=== PATIENT | female | born 1950 | race Asian ===

== ENCOUNTER 2016-07-20 09:13 | Day surgery (SDC) | payer MEDICARE, BC ==
--- NOTE | 2016-07-19 18:45 | Pre-op HX & Phy Repo 2 SIG ---
DATE OF ADMISSION: 07/20/2016 DATE OF SURGERY: 07/20/2016 PREOPERATIVE DIAGNOSIS: Retinal detachment right eye. BRIEF NOTE: This is a first [facility] admission for this patient, who is a very pleasant, 66-year-old lady who complained of a block vision or shadow in the vision of the right eye for the past day. On examination, she was found to have a localized retinal detachment and is admitted for repair. PAST MEDICAL HISTORY: Remarkable for diabetes and sleep apnea. She has had prior shingles. She is maintained on Flonase, Livalo, aspirin, metformin, and valsartan. ALLERGIES: She has an allergy to sulfa, Bactrim, Naprosyn, and Toprol. Physical Examination: Best vision at the time of admission was 30 in the right eye and 20/40 in the left with pressures of 17 and 16. There was an inferolateral nasal field defect on the right eye. The left eye was full. Fundus examination of the right eye showed a localized retinal detachment from the 9 o'clock to 12:30 position what appeared to be a single horseshoe tear at the 10 o'clock position. The macula was still . No other breaks were seen. The left fundus showed no tears to scleral depression. General physical examination will be done by Dr. Waters. ASSESSMENT: Localized retinal detachment right eye. PLAN: The plan is to perform a pars plana vitrectomy with endo drainage cryopexy and injection of the gas fluid exchange on the right eye. The risks and benefits of surgery were gone over the patient with potential for infection, hemorrhage, cataract formation, the need for additional operations, remote possibility of loss of the eye. The risk of anesthesia was discussed. The patient understands consents to the surgery to be performed on tomorrow morning. Dave Self M.D. DR: Miki JOB#: [id number] CC:
[2016-07-20] VITALS (10 sets, daily range): BP systolic 106–134; BP diastolic 67–91
[~2016-07-20] VITALS: Ht 160 cm; Wt 83.9 kg
[~2016-07-20 09:13] MED LIST: Pred Forte 1% Opth Susp 1ml RIGHT EYE SCH
[2016-07-20] MEDS ORDERED: Phenylephrine 2.5% Op Soln ONE (10:10)
[2016-07-20] MEDS ORDERED: Cyclopentolate 1% Opth Sol ONE (10:10)
[2016-07-20] MEDS: Cyclopentolate 1% Opth Sol RIGHT EYE SCH ×3 (10:12→10:29)
[2016-07-20] MEDS: Phenylephrine 2.5% Op Soln RIGHT EYE SCH ×3 (10:12→10:29)
[2016-07-20] MEDS: Gatifloxacin Opth Solution 0.5% RIGHT EYE SCH ×3 (10:12→10:29)
[2016-07-20 10:14] LABS: BASOPHILS % (AUTO) 1.3 % (0.0-2.0); EOSINOPHILS % (AUTO) 8.8 % (0.0-3.0); LYMPHOCYTES % (AUTO) 32.1 % (20.0-45.0); MEAN CORPUSCULAR HEMOGLOBIN 27.5 PG (27.0-31.0); MEAN CORPUSCULAR HGB CONC 32.9 G/DL (32.0-36.0); MEAN CORPUSCULAR VOLUME 83 FL (80-99); MEAN PLATELET VOLUME 6.5 FL (6.5-10.1); MONOCYTES % (AUTO) 6.6 % (1.0-10.0); NEUTROPHILS % (AUTO) 51.3 % (45.0-75.0); PLATELET COUNT 298 K/UL (150-450); RED BLOOD COUNT 4.87 M/UL (4.20-5.40); RED CELL DISTRIBUTION WIDTH 12.3 % (11.6-14.8); WHITE BLOOD COUNT 5.4 K/UL (4.8-10.8)
[2016-07-20 10:24] LABS: CALCIUM 9.6 mg/dL (8.6-10.2); GLOMERULAR FILTRATION RATE 55.3 mL/min (>60); POTASSIUM 3.8 mEQ/L (3.4-4.9)
[2016-07-20] MEDS ORDERED: Maxitrol Opth Oint 3.5gm ONE (10:52)
[2016-07-20] MEDS ORDERED: BSS 500ml btl ONE (10:52)
[2016-07-20] MEDS ORDERED: Lidocaine 2% MPF 5ml Vial INJ ONE (10:53)
[2016-07-20] MEDS ORDERED: Bupivacaine 0.75% 30ml vial INJ ONE (10:53)
[2016-07-20] MEDS ORDERED: Dexamethasone 4mg/ml vial ONE (10:53)
[2016-07-20] MEDS ORDERED: Tetracaine 0.5% Opth Soln ONE (10:53)
[2016-07-20] MEDS ORDERED: Sodium Hyaluronate 10 mg/ml 0.85ml ONE (10:53)
[2016-07-20] MEDS ORDERED: EPINEPHrine 1mg/1ml Amp ONE (10:53)
[2016-07-20] MEDS ORDERED: BSS 15ml BTL ONE (10:53)
[2016-07-20] MEDS ORDERED: Povidone-Iodine 5% opth solution ONE (10:55)
[2016-07-20] MEDS ORDERED: Neosporin Oph Soln 5ml Btl ONE (10:55)
[2016-07-20] MEDS ORDERED: Sterile Water Irrig 1000ml IRRIG ONE (11:15)
[2016-07-20] MEDS ORDERED: LR 1000ml ONE (11:15)
[2016-07-20] MEDS ORDERED: Propofol 10mg/ml 20ml IV ONE ×2 (11:15→11:19)
[2016-07-20] MEDS ORDERED: NS Irrig 1000ml ONE (11:15)
[2016-07-20] MEDS ORDERED: Midazolam 2mg/2ml Inj ONE (11:15)
[2016-07-20] MEDS ORDERED: Kenalog-40 1ml Vial ONE (11:18)
[2016-07-20] MEDS ORDERED: Kenalog-10 5ml Inj ONE (11:18)
[2016-07-20] MEDS ORDERED: LR 1000ml 1,000 ML IVLG SCH (11:31)
[2016-07-20] MEDS ORDERED: LR 1000ml 1,000 ML IV SCH (11:45)
[2016-07-20] MEDS ORDERED: fentaNYL 100 mcg/2 mL IV PRN (11:45)
--- NOTE | 2016-07-20 11:54 | Anethesia Preoperative Eval ---
Anesthesia Pre-op PMH/ROS General Date of Evaluation: Jul 20, 2016 Time of Evaluation: 11:15 Anesthesiologist: Ruddy ASA Score: ASA 3 Mallampati Score Class I : Soft palate, uvula, fauces, pillars visible Class II: Soft palate, uvula, fauces visible Class III: Soft palate, base of uvula visible Class IV: Only hard plate visible Mallampati Classification: Class II Surgeon: Clair Diagnosis: Detached retina right eye Surgical Procedure: Vitrectomy, cryo, gas fluid exchange right eye Family History: no anesthesia problems Allergies: Coded Allergies: NAPROXEN (Verified Allergy, Unknown, 07/20/16) SULFAMETHOXAZOLE (Verified Allergy, Unknown, 07/20/16) TRIMETHOPRIM (Verified Allergy, Unknown, 07/20/16) Medications: see eMAR Past Medical History Cardiovascular: Reports: HTN, Denies: CAD, VT, arrhythmia, other, valve dz Pulmonary: Reports: RIAZ, Denies: COPD, asthma, other Gastrointestinal/Genitourinary: Denies: CRI, ESRD, GERD, other Neurologic/Psychiatric: Denies: CVA, TIA, dementia, depression/anxiety, other Endocrine: Reports: DM, Denies: hypothyroidism, other, steroids HEENT: Denies: [place] (L), [place] (R), cataract (L), cataract (R), glaucoma, other Hematology/Immune: Denies: DVT, anemia, bleeding disorder, other PMH Narrative: HTN, DM, RIAZ PSxH Narrative: NIDHI Anesthesia Pre-op Phys. Exam Physician Exam Last Vital Signs Date Time Temp Pulse Resp B/P Pulse Ox O2 Delivery O2 Flow Rate FiO2 07/20/16 10:16 97.3 63 20 106/68 97 Room Air Constitutional: NAD Neurologic: CN 2-12 intact Cardiovascular: RRR, no M/R/G Respiratory: CTA Gastrointestinal: S/NT/ND Airway Exam Mallampati Score: Class II MO: full ROM: full Teeth: intact Anesthesia Pre-op A/P Labs Hematology Test 07/20/16 10:05 White Blood Count 5.4 K/UL (4.8-10.8) Red Blood Count 4.87 M/UL (4.20-5.40) Hemoglobin 13.4 G/DL (12.0-16.0) Hematocrit 40.6 % (37.0-47.0) Mean Corpuscular Volume 83 FL (80-99) Mean Corpuscular Hemoglobin 27.5 PG (27.0-31.0) Mean Corpuscular Hemoglobin Concent 32.9 G/DL (32.0-36.0) Red Cell Distribution Width 12.3 % (11.6-14.8) Platelet Count 298 K/UL (150-450) Mean Platelet Volume 6.5 FL (6.5-10.1) Neutrophils (%) (Auto) 51.3 % (45.0-75.0) Lymphocytes (%) (Auto) 32.1 % (20.0-45.0) Monocytes (%) (Auto) 6.6 % (1.0-10.0) Eosinophils (%) (Auto) 8.8 % (0.0-3.0) H Basophils (%) (Auto) 1.3 % (0.0-2.0) Chemistry Test 07/20/16 10:05 Sodium Level 140 mEQ/L (135-145) Potassium Level 3.8 mEQ/L (3.4-4.9) Chloride Level 101 mEQ/L (98-107) Carbon Dioxide Level 24 mEQ/L (20-30) Anion Gap 15 (5-15) Blood Urea Nitrogen 18 mg/dL (7-23) Creatinine 1.0 mg/dL (0.5-0.9) H Estimat Glomerular Filtration Rate 55.3 mL/min (>60) Glucose Level 133 mg/dL (74-106) H Calcium Level 9.6 mg/dL (8.6-10.2) Risk Assessment & Plan Assessment: Detached retina in a HTN, DM female with RIAZ Plan: MAC, TIVA Status Change Before Surgery: No Pre-Antibiotics Drug: None SORAIDA MCKNIGHT M.D. Jul 20, 2016 11:54
--- NOTE | 2016-07-20 11:55 | Immediate Post-Op Evaluation ---
Immediate Post-Op Evalulation Immediate Post-Op Evalulation Procedure: Vitrectomy, Cryo, Gas/fluid exchange Date of Evaluation: Jul 20, 2016 Time of Evaluation: 12:31 IV Fluids: 500 Blood Pressure Systolic: 128 Blood Pressure Diastolic: 72 Pulse Rate: 70 Respiratory Rate: 16 O2 Sat by Pulse Oximetry: 98 Temperature (Fahrenheit): 97.2 Pain Score (1-10): 0 Nausea: No Vomiting: No Complications No complication Patient Status: awake, patent, none Hydration Status: adequate Drug: None SORAIDA MCKNIGHT M.D. Jul 20, 2016 11:55
--- NOTE | 2016-07-20 12:28 | 48 Hour Post Anesthesia Eval ---
Post Anesthesia Evaluation Procedure: Vitrectomy, Cryo, Gas/fluid exchange Date of Evaluation: Jul 20, 2016 Time of Evaluation: 13:00 Blood Pressure Systolic: 131 0: 79 Pulse Rate: 72 Respiratory Rate: 21 O2 Sat by Pulse Oximetry: 97 Airway: patent Nausea: No Vomiting: No Pain Intensity: 0 Hydration Status: adequate Cardiopulmonary Status: Stable Mental Status/LOC: patient returned to baseline Follow-up Care/Observations: As per surgery Post-Anesthesia Complications: No anesthetic complication Follow-up care needed: N/A SORAIDA MCKNIGHT M.D. Jul 20, 2016 12:28
--- NOTE | 2016-07-20 12:29 | Pre-Procedure Note/Attestation ---
Pre-Procedure Note/Attestation Complete Prior to Procedure Planned Procedure: right Procedure Narrative: PPV, cryopexy, gas fluid exchange R eye. Indications for Procedure Pre-Operative Diagnosis: Retinal detachment R eye Attestation I attest that I discussed the nature of the procedure; its benefits; risks and complications; and alternatives (and the risks and benefits of such alternatives ), prior to the procedure, with the patient (or the patient's legal credit representative). I attest that, if there was a reasonable possibility of needing a blood transfusion, the patient (or the patient's legal credit representative) was given the [facility] standardized written summary, pursuant to the [place] Blood Safety Act ([place] Health and Safety Code # 1645, as amended). I attest that I re-evaluated the patient just prior to the surgery and that there has been no change in the patient's H&P, except as documented below: SYLVESTER STILES Jul 20, 2016 12:29
--- NOTE | 2016-07-20 12:30 | Brief Operative Note ---
Immediate Post Operative Note Operative Note Chief Complaint: Shadow in vision R eye Pre-op Diagnosis: Retinal detachment R eye Procedure: PPV, cryopexy, gas-fluid exchange R eye Post-op Diagnosis: same as pre-op Surgeon: essie Equal Opportunity Representative: nayana Anesthesiologist: Martina Anesthesia: MAC Specimen: none Complications: none Condition: stable Estimated Blood Loss: none Drains: none Implant(s) used?: No SYLVESTER STILES Jul 20, 2016 12:30
[2016-07-20] MEDS ORDERED: Norco 5mg/325mg tab ORAL PRN (18:01)
--- NOTE | 2016-07-20 20:16 | Operative Note - Dictated ---
DATE OF SURGERY: 07/20/2016 PREOPERATIVE DIAGNOSIS: Retinal detachment, right eye. POSTOPERATIVE DIAGNOSIS: Retinal detachment, right eye. PROCEDURES: 1. Pars plana vitrectomy. 2. Peripheral cryopexy. 3. Gas fluid exchange, right eye. SURGEON: Dave Self M.D. PATTERN WHEEL MAKER: None. ANESTHESIA: Local sedation. ANESTHESIOLOGIST: Dr. River Fox M.D.. JUSTIFICATION FOR SURGERY: This 66-year-old lady noted a shadow in the vision of the right eye after series of flashing lights. She was found to have a retinal detachment. BRIEF NOTE: The patient brought to the operative room, placed on operating room table in supine position. After a time-out was performed and agreed upon by the staff and initial monitoring secured by Dr. Wells's, retrobulbar and Van Lint blocks were given to the right eye in the standard way. When the blocks taken effect, she was prepped and draped in normal manner. The lid speculum was inserted into the right eye. Using a 23-gauge trocar system cannulas were placed all except infranasal quadrant. Infusion secured inferotemporally. Vitrectomy was begun posterior to the lens taking care to avoid contact. A central core vitrectomy was done followed by peripheral vitrectomy leaving a small vitreous skirt. An area of lattice degeneration with an open break at the 10 o'clock position was localized and vitreous was shaved from the surface of this area. Cryopexy was then used to place 4 to 5 lesions completely encompassing the lattice and identifying the small retinal hole. Scleral depression was completed and no other lesions were appreciated. Fluid was then gently drained from the retinal break with the vitreous cutter on low suction. The retina was noted to flatten by about 75%. This was felt to be adequate. An air-fluid exchange was performed leaving about 25% of the fluid in the eye posteriorly to limit the possibility of wet folds. A gas exchange was then performed with the same amount of fluid being left posteriorly. The instruments were then removed from the eye and cannulas removed with the wounds noted to be self-sealing. Subconjunctival Decadron and gentamicin were injected inferiorly and Pred Forte, gatifloxacin, atropine drops were given as well as Maxitrol ointment. The eye was patched and shielded. The patient was taken to recovery in excellent condition. There were no complications. Dave Self M.D. DR: Miki JOB#: [id number] CC: Dave Self M.D.; Fax#: [phone]
--- NOTE | 2016-07-23 11:15 | Pre-op HX & Phy Repo 2 SIG ---
DATE OF ADMISSION: 07/20/2016 PRESURGICAL INTERNAL MEDICINE HISTORY AND PHYSICAL: DATE OF EVALUATION: 07/20/2016 REASON FOR EVALUATION: I was asked by Dr. Dave Self to see this 66-year-old female who is going for emergency surgery on the right eye. The patient has retinal detachment right eye. Please see history and physical by rd mechanical engineer, Dr. Dave Self. The patient was examined. Chart was reviewed. PAST MEDICAL HISTORY/REVIEW OF SYSTEMS: Remarkable for type 2 diabetes mellitus, history of hypertension, obesity, hyperlipidemia, degenerative joint disease knee, and history of peripheral diabetic neuropathy. Denies history of anemia. No respiratory problem. No heart attack. No stroke or seizures. No chest pain or palpitation. Denies history of GI bleeding or heartburn. No hepatitis. No history of renal failure. No thyroid problem. No renal failure. PAST SURGICAL HISTORY: Partial hysterectomy and oophorectomy. CURRENT MEDICATIONS: Metformin, baby aspirin, multivitamin, statin, 600 mg . ALLERGIES: Sulfa drugs and Naprosyn. HABITS: Denies tobacco or alcohol use. No street drugs. FAMILY HISTORY: Hypertension and stroke on mother's side. Father unknown. PHYSICAL EXAMINATION: GENERAL: Alert and overweight female. BMI is 33.3 kg/m2. VITAL SIGNS: Blood pressure 106/68, temperature 97.3 degrees, pulse 69, and O2 saturation 97% on room air. SKIN: Dry. Clear. No warm. No rashes. No jaundice. Lymph nodes not enlarged. HEENT: Head, normocephalic. Ears, clear. Eyes, full description per Dr. Dave Self. Nose clear. Mouth, clear and moist. No dentures. NECK: Supple. No jugular venous distention. Carotids artery +2. Trachea midline. CHEST: No deformity or asymmetry. LUNGS: Clear to auscultation and percussion. No rales or rhonchi. No wheezing. HEART: Sinus rhythm. No ectopy. No murmur. No S3 or S4. ABDOMEN: Soft and obese. No palpable mass. No rebound. EXTREMITIES: Degenerative joint disease knee. No edema. No varicose vein. No calf tenderness. GENITOURINARY: Tract normal for gender. CVA nontender. No dysuria. Post hysterectomy. NEUROLOGIC: Numbness. Peripheral diabetic neuropathy of the feet. No asymmetry. No tremor. No nystagmus is noted. Laboratory And Diagnostic Data: Echocardiogram, normal sinus rhythm, normal ECG. The patient did not eat or drink since 10:00 p.m. yesterday. Follow up blood sugar today 125 mg/dL. IMPRESSION: 1. Retinal detachment, right eye. 2. Hypertension, controlled. 3. Type 2 diabetes mellitus with complication of peripheral neuropathy. 4. Peripheral neuropathy. 5. Overweight, BMI is 33.3. 6. Hyperlipidemia. Plan: Pars plana vitrectomy-23G gas fluid exchange, right eye per Dr. Dave Self. Conclusion, patient's vital signs stable. Blood sugar control. The patient is overweight and has a diabetic complication of peripheral neuropathy. The patient did not eat or drink from 10:00 p.m. yesterday. The patient's condition optimized for surgery. Thank you, Dr. Self, for privilege to participate in presurgical care of this interesting patient. Mayuri Waters M.D. DR: Marin JOB#: [id number] CC:
== END 2016-07-20 14:05 | disposition home or self-care (01) ==
LOC: SUR 09:13
DX: H33.011 Retinal detachment with single break, right eye (principal); E11.42 Type 2 diabetes mellitus with diabetic polyneuropathy; Z79.84 Long term (current) use of oral hypoglycemic drugs; I10 Essential (primary) hypertension; G47.33 Obstructive sleep apnea (adult) (pediatric); M17.9 Osteoarthritis of knee, unspecified; E66.9 Obesity, unspecified; Z68.33 Body mass index [BMI] 33.0-33.9, adult; E78.5 Hyperlipidemia, unspecified; Z79.82 Long term (current) use of aspirin; Z79.899 Other long term (current) drug therapy; Z88.6 Allergy status to analgesic agent; Z88.3 Allergy status to other anti-infective agents; Z88.2 Allergy status to sulfonamides; Z90.710 Acquired absence of both cervix and uterus; Z90.721 Acquired absence of ovaries, unilateral
CPT/HCPCS: 36415; 67108; 80048; 82962; 85025; 93005; J0171; J1100; J2250; J2704; J3301; J3470; J3490; J7120; 94003; 94150